=== PATIENT | female | born 1985 | race American Indian/Alaskan Native ===

== ENCOUNTER 2019-06-18 15:04 | Outpatient (CLI) | payer BC ==
[2019-06-18 15:47] LABS: Hemoglobin 7.4 gm/dl (10.1-14.3); Mean Corpuscular HGB Conc 30 % (30-34); Platelet Count 243 K/mm3 (140-440); Red Blood Count 4.19 M/mm3 (3.65-5.03)
[2019-06-18 15:51] LABS: Bilirubin,Urine NEG (Negative); Blood,Urine NEG (Negative); Color,Urine Yellow (Yellow); Mucus,Urine FEW /HPF; Protein,Urine <15 mg/dL mg/dL (Negative)
[2019-06-18 15:53] LABS: Alanine Aminotransferase 17 units/L (7-56); Albumin 4.2 g/dL (3.9-5); BUN/Creatinine Ratio 16; Blood Urea Nitrogen 11 mg/dL (7-17); Calcium 8.4 mg/dL (8.4-10.2); Hemolysis Index 2; LDL Cholesterol,Direct 50 mg/dL (50-130); Mean Corpuscular Volume 60 fl (79-97)
[2019-06-18 15:54] LABS: Red Cell Distribution Width 20.9 % (13.2-15.2)
[2019-06-18 16:06] LABS: Chol/HDL Ratio 1.78 %; HDL Cholesterol 74 mg/dL (40-59)
[2019-06-18 16:47] LABS: Basophils % (Manual) 0 % (0.0-1.8); Total Cells Counted 100
[2019-06-18 16:48] LABS: Anisocytosis 1+; Hypochromasia 2+; Tear Drop Cells Few
[2019-06-18 16:49] LABS: Platelet Estimate Cons
[2019-06-18 16:55] LABS: Erythrocyte Sedimentation Rate 38 mm/Hr (0-20)
[2019-06-22 12:03] LABS: ANA Screen, IFA Negative (Negative)
[2019-06-26 14:43] LABS: Vitamin D, 25-OH, D2 <4 ng/mL
== END 2019-06-18 15:05 | disposition home or self-care (01) ==
LOC: LAB 15:04
PROVIDERS: ATTEND Internal Medicine
DX: M25.551 Pain in right hip (principal); R03.0 Elevated blood-pressure reading, without diagnosis of hypertension; E78.2 Mixed hyperlipidemia
CPT/HCPCS: 36415; 80053; 80061; 81001; 82306; 84443; 85007; 85025; 85652; 86038; 86618

== ENCOUNTER 2020-05-30 12:27 | Outpatient (CLI) | payer BC ==
--- NOTE | 2020-05-30 15:02 | Ultrasound Report ---
US transvaginal, US pelvic complete INDICATION / CLINICAL INFORMATION: PELVIC AND PERINEAL PAIN. TECHNIQUE: Transabdominal and Transvaginal. Duplex Color Doppler used: Yes. COMPARISON: 09/08/2015. FINDINGS: UTERUS: The uterus measures 8.7 x 5.0 x 6.1 cm. There is a 2.5 cm hypoechoic mass in the uterine fund us, compatible with fibroid. Additional smaller 7 mm fibroid is also present in the uterine body. RIGHT ADNEXA: The right ovary measures 6 x 3.9 x 5.4 cm. There is a 5.2 cm complex cyst in left ovary with lacelike internal echoes most compatible with hemorrhagic cyst. Normal Doppler flow is present in the right ovary. LEFT ADNEXA: Left ovary measures 3.7 x 1.9 x 4.0 cm. No significant ovarian cyst or mass. Normal colo r Doppler blood flow. FREE FLUID: None. ADDITIONAL FINDINGS: None. IMPRESSION: 1. Uterine fibroids, largest located within the uterine fundus measuring up to 2.5 cm. 2. 5.2 cm hemorrhagic left ovarian cyst. Recommend follow-up ultrasound in 6-12 weeks to confirm reso lution. Signer Name: Zeferino Alexis MD Signed: 05/30/2020 2:58 PM Workstation Name: [id number]
== END 2020-05-30 12:28 | disposition home or self-care (01) ==
LOC: US 12:27
DX: D25.9 Leiomyoma of uterus, unspecified (principal); N83.292 Other ovarian cyst, left side; N92.5 Other specified irregular menstruation
CPT/HCPCS: 76830; 76856

== ENCOUNTER 2020-06-03 11:14 | Outpatient (CLI) | payer BC ==
[2020-06-03 11:57] LABS: Basophils % (Auto) 0.6 % (0.0-1.8); Eosinophils % (Auto) 0.4 % (0.0-4.3); Lymphocytes # (Auto) 1.8 K/mm3 (1.2-5.4); Lymphocytes % (Auto) 33.8 % (13.4-35.0); Mean Corpuscular HGB Conc 28 % (30-34); Monocytes # (Auto) 0.3 K/mm3 (0.0-0.8); Monocytes % (Auto) 4.8 % (0.0-7.3); Platelet Count 354 K/mm3 (140-440); Red Blood Count 3.86 M/mm3 (3.65-5.03)
[2020-06-03 12:10] LABS: Hematocrit 23.2 % (30.3-42.9); Hemoglobin 6.5 gm/dl (10.1-14.3); Mean Corpuscular Volume 60 fl (79-97); Red Cell Distribution Width 23.1 % (13.2-15.2)
[2020-06-03 12:16] LABS: Iron 8 ug/dL (37-170)
[2020-06-03 12:19] LABS: Bilirubin,Direct < 0.2 mg/dL (0-0.2); Total Iron Binding Capacity 536 mcg/dL (250-450)
[2020-06-08 07:55] LABS: Albumin 3.5 g/dL (3.8-4.8)
== END 2020-06-03 11:15 | disposition home or self-care (01) ==
LOC: LAB 11:14
PROVIDERS: ATTEND Internal Medicine Hematology & Oncology
DX: D50.0 Iron deficiency anemia secondary to blood loss (chronic) (principal)
CPT/HCPCS: 36415; 82247; 82248; 82607; 82668; 82728; 82747; 83010; 83550; 83615; 83921; 84165; 85025; 85045; 86880

== ENCOUNTER 2020-07-11 15:12 | Outpatient (CLI) | payer BC ==
[2020-07-11 15:58] LABS: Hemoglobin 11.1 gm/dl (10.1-14.3); Mean Corpuscular HGB Conc 31 % (30-34); Mean Corpuscular Volume 76 fl (79-97); Platelet Count 157 K/mm3 (140-440); Red Blood Count 4.71 M/mm3 (3.65-5.03)
[2020-07-11 16:03] LABS: Alanine Aminotransferase 35 units/L (7-56); Albumin 4.1 g/dL (3.9-5); Blood Urea Nitrogen 9 mg/dL (7-17); Calcium 8.9 mg/dL (8.4-10.2); HDL Cholesterol 67 mg/dL (40-59); Hemolysis Index 2; LDL Cholesterol,Direct 65 mg/dL (50-130)
[2020-07-11 16:04] LABS: BUN/Creatinine Ratio 13
[2020-07-11 16:15] LABS: Red Cell Distribution Width 34.9 % (13.2-15.2)
[2020-07-11 18:06] LABS: Anisocytosis 3+; Total Cells Counted 100
[2020-07-11 18:07] LABS: Hypochromasia 1+; Ovalocytes Rare; Tear Drop Cells Rare
[2020-07-11 18:08] LABS: Large Platelets Rare; Platelet Estimate Consistent w Auto
== END 2020-07-11 15:13 | disposition home or self-care (01) ==
LOC: LAB 15:12
DX: Z13.29 Encounter for screening for other suspected endocrine disorder (principal); D51.9 Vitamin B12 deficiency anemia, unspecified; E55.9 Vitamin D deficiency, unspecified; R94.6 Abnormal results of thyroid function studies; R68.89 Other general symptoms and signs; R79.89 Other specified abnormal findings of blood chemistry
CPT/HCPCS: 36415; 80053; 80061; 82306; 82607; 82747; 83036; 84443; 85007; 85025

== ENCOUNTER 2021-03-31 07:43 | Outpatient (CLI) | payer BC ==
[2021-03-31 08:20] LABS: Basophils % (Auto) 0.7 % (0.0-1.8); Hematocrit 32.4 % (30.3-42.9); Hemoglobin 10.6 gm/dl (10.1-14.3); Lymphocytes # (Auto) 1.5 K/mm3 (1.2-5.4); Lymphocytes % (Auto) 42.9 % (13.4-35.0); Mean Corpuscular HGB Conc 33 % (30-34); Mean Corpuscular Volume 76 fl (79-97); Monocytes # (Auto) 0.3 K/mm3 (0.0-0.8); Monocytes % (Auto) 7.8 % (0.0-7.3); Platelet Count 223 K/mm3 (140-440); Red Blood Count 4.27 M/mm3 (3.65-5.03); Red Cell Distribution Width 17.5 % (13.2-15.2)
[2021-03-31 08:39] LABS: Alanine Aminotransferase 15 units/L (7-56); Albumin 3.7 g/dL (3.9-5); BUN/Creatinine Ratio 11; Blood Urea Nitrogen 9 mg/dL (7-17); Calcium 8.3 mg/dL (8.4-10.2); HDL Cholesterol 65 mg/dL (40-59); Hemolysis Index 3; LDL Cholesterol,Direct 68 mg/dL (50-130)
[2021-03-31 08:47] LABS: Erythrocyte Sedimentation Rate 10 mm/Hr (0-20)
--- NOTE | 2021-03-31 16:32 | XRay Report ---
Right knee 3 views INDICATION: Knee pain FINDINGS: There is tricompartmental degenerative change with joint space narrowing most significant i n the patellofemoral joint. No acute fractures seen. Joint effusion is noted. Signer Name: Lawrence Esteves MD Signed: 03/31/2021 4:28 PM Workstation Name: [id number]
== END 2021-03-31 07:44 | disposition home or self-care (01) ==
LOC: LAB 07:43
PROVIDERS: ATTEND Internal Medicine
DX: M25.461 Effusion, right knee (principal); M17.11 Unilateral primary osteoarthritis, right knee; R79.82 Elevated C-reactive protein (CRP); E66.9 Obesity, unspecified
CPT/HCPCS: 36415; 80053; 80061; 82607; 84443; 85025; 85652; 86140

== ENCOUNTER 2022-03-11 12:48 | Outpatient (CLI) | payer BC ==
[2022-03-11 14:14] LABS: Hematocrit 30.8 % (30.3-42.9); Hemoglobin 9.2 gm/dl (10.1-14.3); Mean Corpuscular HGB Conc 30 % (30-34); Mean Corpuscular Volume 67 fl (79-97); Platelet Count 266 K/mm3 (140-440); Red Blood Count 4.61 M/mm3 (3.65-5.03); Red Cell Distribution Width 19.7 % (13.2-15.2)
[2022-03-11 14:35] LABS: Chol/HDL Ratio 2.07 %
[2022-03-11 14:46] LABS: Free T4 (Free Thyroxine) 0.93 ng/dL (0.76-1.46)
== END 2022-03-11 12:49 | disposition home or self-care (01) ==
LOC: LAB 12:48
PROVIDERS: ATTEND Internal Medicine
DX: E55.9 Vitamin D deficiency, unspecified (principal); E78.5 Hyperlipidemia, unspecified; E66.9 Obesity, unspecified; D64.9 Anemia, unspecified; D51.3 Other dietary vitamin B12 deficiency anemia; I10 Essential (primary) hypertension; F41.9 Anxiety disorder, unspecified
CPT/HCPCS: 36415; 80061; 82306; 82607; 84439; 84443; 85027